=== PATIENT | female | born 1980 | race Caucasian/White ===

== ENCOUNTER 2024-02-23 17:42 | Emergency (ER) | payer OTHER ==
[2024-02-23] MEDS ORDERED: Sodium Chloride 0.9% 10 ML Syringe FLUSH PRN (17:54)
[2024-02-23] MEDS ORDERED: Sodium Chloride 0.9% 2.5 ML Syringe FLUSH PRN (17:54)
[2024-02-23] MEDS: Lidocaine 2% Viscous Solution 15 ML UD PO ONE (18:37)
[2024-02-23] MEDS: Aluminum Hydroxide/Magnesium Hydroxide/Simethicone Susp 30 ML Cup PO ONE (18:37)
[2024-02-23 18:51] LABS: APPEARANCE,URINE CLEAR; BILIRUBIN,URINE NEGATIVE (NEGATIVE); COLOR,URINE YELLOW; GLUCOSE,URINE NEGATIVE (NEGATIVE); KETONES,URINE 15 mg/dL (NEGATIVE); LEUKOCYTE ESTERASE,URINE NEGATIVE (NEGATIVE); NITRITE,URINE NEGATIVE (NEGATIVE); OCCULT BLOOD,URINE NEGATIVE (NEGATIVE); PH,URINE 6.5 (5.0-8.0); PROTEIN,URINE NEGATIVE (NEGATIVE); UROBILINOGEN,URINE 0.2 EU/dL (<2.0)
[2024-02-23 19:05] LABS: BASOPHILS ABSOLUTE AUTO 0.04 K/uL (0.00-0.20); BASOPHILS PERCENT AUTO 0.3 % (0.0-1.0); EOSINOPHILS ABSOLUTE AUTO 0.02 K/uL (0.00-0.45); EOSINOPHILS PERCENT AUTO 0.1 % (0.0-6.0); HEMATOCRIT 37.7 % (37.0-47.0); HEMOGLOBIN 12.6 g/dL (12.0-16.0); IMMATURE GRAN ABSOLUTE AUTO 0.04 K/uL (0.00-0.05); IMMATURE GRAN PERCENT AUTO 0.3 % (0.0-0.4); LYMPHOCYTES ABSOLUTE AUTO 1.93 K/uL (1.00-4.80); LYMPHOCYTES PERCENT AUTO 13.2 % (24.0-44.0); MEAN CORPUSCULAR HGB CONC 33.4 g/dL (32.0-36.0); MEAN CORPUSCULAR VOLUME 86.9 fL (83.0-99.0); MEAN PLATELET VOLUME 10.1 fL (9.4-12.3); MONOCYTES PERCENT AUTO 4.1 % (0.0-8.0); NEUTROPHILS ABSOLUTE AUTO 11.98 K/uL (1.80-7.70); PLATELET COUNT,PLT 362 K/uL (150-400); RED BLOOD CELL COUNT 4.34 M/uL (4.10-5.30); WHITE BLOOD CELL COUNT,WBC 14.61 K/uL (3.9-11.3)
[2024-02-23] MEDS: Pantoprazole 40 MG in Sodium Chloride 0.9% 10 ML IVPUSH ONE (19:24)
[2024-02-23 19:28] LABS: A/G RATIO 0.9 (0.9-1.6); ALBUMIN 3.6 g/dL (3.4-5.0); BILIRUBIN TOTAL 0.2 mg/dL (0.2-1.0); CALCIUM 9.9 mg/dL (8.5-10.1); CARBON DIOXIDE,CO2 28.1 mmol/L (21.0-32.0); EST CRCL DRUG DOSING (CG) 69.31 mL/min; POTASSIUM,K 4.1 mmol/L (3.5-5.1); PROTEIN TOTAL,TP 7.8 g/dL (6.4-8.2)
[2024-02-23] MEDS: Morphine 2 MG/ML SYRINGE IVPUSH ONE (20:52)
[2024-02-23] MEDS: Ondansetron 4 MG/2 ML SDV IVPUSH ONE (20:52)
[2024-02-23] MEDS ORDERED: Iopamidol 755 Mg/ML 100 ML Bottle IVPUSH ONE (21:09)
== END 2024-02-23 22:30 | disposition home or self-care (01) ==
LOC: MW.ED 17:42
DX: K29.00 Acute gastritis without bleeding (principal); K21.9 Gastro-esophageal reflux disease without esophagitis; K80.20 Calculus of gallbladder without cholecystitis without obstruction; Z75.8 Other problems related to medical facilities and other health care; Z79.899 Other long term (current) drug therapy
CPT/HCPCS: 36415; 74177; 80053; 81003; 81025; 83690; 85025; 96374; 96375; 99284; A9270; J2270; J2405; J2470; J3490

== ENCOUNTER 2024-02-27 20:07 | Day surgery (SDC) | payer OTHER ==
[2024-02-28] MEDS ORDERED: Sodium Chloride 0.9% 10 ML Syringe FLUSH PRN ×2 (01:38→07:13)
[2024-02-28] MEDS: Pantoprazole 40 MG in Sodium Chloride 0.9% 10 ML IVPUSH ONE (02:14)
[2024-02-28] MEDS: Morphine 4 MG/ML Syringe IVPUSH ONE (02:15)
[2024-02-28 02:25] LABS: BASOPHILS ABSOLUTE AUTO 0.06 K/uL (0.00-0.20); BASOPHILS PERCENT AUTO 0.5 % (0.0-1.0); EOSINOPHILS ABSOLUTE AUTO 0.06 K/uL (0.00-0.45); EOSINOPHILS PERCENT AUTO 0.5 % (0.0-6.0); HEMATOCRIT 36.4 % (37.0-47.0); HEMOGLOBIN 12.4 g/dL (12.0-16.0); IMMATURE GRAN ABSOLUTE AUTO 0.02 K/uL (0.00-0.05); IMMATURE GRAN PERCENT AUTO 0.2 % (0.0-0.4); LYMPHOCYTES ABSOLUTE AUTO 3.62 K/uL (1.00-4.80); LYMPHOCYTES PERCENT AUTO 31.2 % (24.0-44.0); MEAN CORPUSCULAR HEMOGLOBIN 29.5 pg (28.0-32.0); MEAN CORPUSCULAR HGB CONC 34.1 g/dL (32.0-36.0); MEAN CORPUSCULAR VOLUME 86.7 fL (83.0-99.0); MEAN PLATELET VOLUME 10.3 fL (9.4-12.3); MONOCYTES ABSOLUTE AUTO 0.76 K/uL (0.00-0.80); MONOCYTES PERCENT AUTO 6.5 % (0.0-8.0); NEUTROPHILS PERCENT AUTO 61.1 % (41.0-71.0); PLATELET COUNT,PLT 382 K/uL (150-400); WHITE BLOOD CELL COUNT,WBC 11.62 K/uL (3.9-11.3)
[2024-02-28 02:37] LABS: APPEARANCE,URINE CLEAR; BILIRUBIN,URINE NEGATIVE (NEGATIVE); COLOR,URINE YELLOW; GLUCOSE,URINE NEGATIVE (NEGATIVE); KETONES,URINE TRACE mg/dL (NEGATIVE); LEUKOCYTE ESTERASE,URINE NEGATIVE (NEGATIVE); NITRITE,URINE NEGATIVE (NEGATIVE); OCCULT BLOOD,URINE NEGATIVE (NEGATIVE); PROTEIN,URINE NEGATIVE (NEGATIVE); UROBILINOGEN,URINE 0.2 EU/dL (<2.0)
[2024-02-28 02:59] LABS: ALBUMIN 3.9 g/dL (3.4-5.0); BILIRUBIN TOTAL 0.5 mg/dL (0.2-1.0); C-REACTIVE PROTEIN 1.62 mg/dL (<0.3); CALCIUM 9.3 mg/dL (8.5-10.1); CARBON DIOXIDE,CO2 25.4 mmol/L (21.0-32.0); CREATININE 0.9 mg/dL (0.6-1.0); EST CRCL DRUG DOSING (CG) 77.01 mL/min; POTASSIUM,K 3.3 mmol/L (3.5-5.1); PROTEIN TOTAL,TP 7.7 g/dL (6.4-8.2)
[2024-02-28] MEDS: Iopamidol 755 Mg/ML 100 ML Bottle IVPUSH ONE (04:51)
[2024-02-28] MEDS: Sodium Chloride 0.9% 1,000 ML IV ONE (05:21)
[2024-02-28] MEDS ORDERED: Ondansetron 4 MG/2 ML SDV IVPUSH PRN ×2 (06:15→15:43)
[2024-02-28] MEDS ORDERED: dexmedeTOMIDine HCl 200 MCG/2 ML SDV IV ONE (06:16)
[2024-02-28] MEDS: Piperacillin/Tazobactam 3.375 GM in Sodium Chloride 0.9% 100 ML IV ONE (06:46)
[2024-02-28] MEDS: Sodium Chloride 0.9% 1,000 ML IV SCH (06:46)
[2024-02-28] MEDS ORDERED: Sodium Chloride 0.9% 20 ML SDV IV PRN (07:13)
[2024-02-28] MEDS ORDERED: Sodium Chloride 0.9% 2.5 ML Syringe FLUSH PRN (07:13)
[2024-02-28] MEDS ORDERED: Sodium Chloride 0.9% 1,000 ML IV SCH (07:15)
[2024-02-28] MEDS: HYDROmorphone 0.5 MG/0.5 ML Syringe IVPUSH PRN (11:27)
[2024-02-28] MEDS ORDERED: fentaNYL 100 MCG/2 ML SDV ONE ×3 (11:46→14:21)
[2024-02-28] MEDS ORDERED: Propofol 200 MG/20 ML SDV ONE (11:46)
[2024-02-28] MEDS ORDERED: Lidocaine 2% 5 ML SDV ONE (11:46)
[2024-02-28] MEDS ORDERED: Midazolam 1 MG/ML 2 ML SDV ONE (11:46)
[2024-02-28] MEDS ORDERED: Ropivacaine 0.5% 5 MG/ML 30 ML SDV ONE (11:51)
[2024-02-28] MEDS ORDERED: Bupivacaine 0.25% 30 ML SDV ONE (11:51)
[2024-02-28] MEDS ORDERED: Morphine 10 MG/ML SDV ONE (13:16)
[2024-02-28] MEDS ORDERED: Bupivacaine 0.5% 30 ML SDV ONE (13:37)
[2024-02-28] MEDS ORDERED: Lidocaine 2% 11 ML Jelly Filled Syringe ONE (13:50)
[2024-02-28] MEDS ORDERED: Famotidine 20 MG/2 ML SDV ONE (14:06)
[2024-02-28] MEDS ORDERED: Ketamine HCL/NACL, ISO-OSM 50 MG/5 ML Syringe ONE (14:07)
[2024-02-28] MEDS ORDERED: Ketorolac 30 MG/ML SDV ONE (14:23)
[2024-02-28] MEDS ORDERED: Dexamethasone 4 MG/ML 5 ML MDV ONE (14:23)
[2024-02-28] MEDS ORDERED: Ondansetron 4 MG/2 ML SDV ONE (14:23)
[2024-02-28] MEDS ORDERED: Rocuronium Bromide 50 MG/5 ML Syringe ONE (14:25)
[2024-02-28] MEDS ORDERED: Sugammadex Sodium 200 MG/2 ML VIAL IV ONE (14:51)
[2024-02-28] MEDS ORDERED: Glycopyrrolate 0.2 MG/ML SDV ONE (14:51)
[2024-02-28] MEDS ORDERED: Naloxone 0.4 MG/ML SDV IVPUSH PRN (15:43)
[2024-02-28] MEDS ORDERED: Phenylephrine HCl In 0.9% NaCl 1 MG/10 ML Syringe IVPUSH PRN (15:43)
[2024-02-28] MEDS ORDERED: Albuterol 0.083% 2.5 MG/3 ML Neb Soln NEB PRN (15:43)
[2024-02-28] MEDS ORDERED: Morphine 2 MG/ML SYRINGE IVPUSH PRN (15:43)
[2024-02-28] MEDS ORDERED: fentaNYL 50 MCG/ML SDV IVPUSH PRN (15:43)
[2024-02-28] MEDS ORDERED: HYDROmorphone 1 MG/ML Syringe IVPUSH PRN (15:43)
[2024-02-28] MEDS ORDERED: Metoclopramide 10 MG/2 ML SDV IVPUSH PRN (15:43)
[2024-02-28] MEDS: Acetaminophen/oxyCODONE 325-5 MG Tab PO PRN (20:51)
== END 2024-02-28 21:15 | disposition home or self-care (01) ==
LOC: MW.ED 20:07 → MW.SDS 02-28 06:15 → MW.MS 02-28 06:15 → MW.SDS 02-28 21:15
PROVIDERS: ATTEND Surgery
DX: K80.12 Calculus of gallbladder with acute and chronic cholecystitis without obstruction (principal); F90.9 Attention-deficit hyperactivity disorder, unspecified type; Z79.899 Other long term (current) drug therapy
CPT/HCPCS: 36415; 47562; 74177; 80053; 81003; 83605; 83690; 84703; 85025; 85652; 86140; 96361; 96374; 96375; 99285; A9270; J0131; J0665; J1100; J1171; J1596; J1885; J2250; J2272; J2470; J2543; J2704; J2795; J3010; J3490; J7030; Q9967; 00790; 64488; 99283; J2405

== ENCOUNTER 2024-04-04 13:28 | Emergency (ER) | payer OTHER ==
[2024-04-04] MEDS ORDERED: Sodium Chloride 0.9% 2.5 ML Syringe FLUSH PRN (13:51)
[2024-04-04] MEDS: Sodium Chloride 0.9% 10 ML Syringe FLUSH PRN (14:12)
[2024-04-04] MEDS: Morphine 4 MG/ML Syringe IVPUSH STA ×2 (14:12→16:07)
[2024-04-04] MEDS: Ondansetron 4 MG/2 ML SDV IVPUSH STA (14:12)
[2024-04-04 14:15] LABS: BASOPHILS ABSOLUTE AUTO 0.04 K/uL (0.00-0.20); BASOPHILS PERCENT AUTO 0.3 % (0.0-1.0); EOSINOPHILS ABSOLUTE AUTO 0.01 K/uL (0.00-0.45); EOSINOPHILS PERCENT AUTO 0.1 % (0.0-6.0); HEMOGLOBIN 12.2 g/dL (12.0-16.0); IMMATURE GRAN ABSOLUTE AUTO 0.02 K/uL (0.00-0.05); IMMATURE GRAN PERCENT AUTO 0.2 % (0.0-0.4); LYMPHOCYTES ABSOLUTE AUTO 0.96 K/uL (1.00-4.80); LYMPHOCYTES PERCENT AUTO 7.2 % (24.0-44.0); MEAN CORPUSCULAR HEMOGLOBIN 28.6 pg (28.0-32.0); MEAN CORPUSCULAR VOLUME 86.9 fL (83.0-99.0); MONOCYTES ABSOLUTE AUTO 0.35 K/uL (0.00-0.80); MONOCYTES PERCENT AUTO 2.6 % (0.0-8.0); NEUTROPHILS ABSOLUTE AUTO 11.92 K/uL (1.80-7.70); NEUTROPHILS PERCENT AUTO 89.6 % (41.0-71.0); PLATELET COUNT,PLT 383 K/uL (150-400); RED BLOOD CELL COUNT 4.26 M/uL (4.10-5.30)
[2024-04-04 14:19] LABS: APPEARANCE,URINE CLEAR; BILIRUBIN,URINE NEGATIVE (NEGATIVE); COLOR,URINE YELLOW; GLUCOSE,URINE NEGATIVE (NEGATIVE); KETONES,URINE >=80 mg/dL (NEGATIVE); LEUKOCYTE ESTERASE,URINE NEGATIVE (NEGATIVE); NITRITE,URINE NEGATIVE (NEGATIVE); OCCULT BLOOD,URINE SMALL (NEGATIVE); PH,URINE 5.5 (5.0-8.0); PROTEIN,URINE NEGATIVE (NEGATIVE); UROBILINOGEN,URINE 0.2 EU/dL (<2.0)
[2024-04-04 14:27] LABS: BACTERIA,URINE NOT SEEN (NEGATIVE); CALCIUM OXALATE CRYSTALS,URINE FEW (NEGATIVE); EPITHELIAL CELLS,URINE OCCASIONAL (NONE-FEW); RBC,URINE 0-2 (0-2/HPF); WBC,URINE NONE SEEN (0-5/HPF)
[2024-04-04] MEDS: Sodium Chloride 0.9% 1,000 ML IV STA (14:29)
[2024-04-04 14:50] LABS: BILIRUBIN TOTAL 0.5 mg/dL (0.2-1.0); C-REACTIVE PROTEIN 1.19 mg/dL (<0.3); CALCIUM 9.5 mg/dL (8.5-10.1); CARBON DIOXIDE,CO2 24.1 mmol/L (21.0-32.0); CREATININE 1.3 mg/dL (0.6-1.0); EST CRCL DRUG DOSING (CG) 51.24 mL/min; POTASSIUM,K 4.1 mmol/L (3.5-5.1); PROTEIN TOTAL,TP 7.9 g/dL (6.4-8.2)
[2024-04-04] MEDS: Iopamidol 755 MG/ML 500 ML Multipack Bottle IVPUSH STA (15:25)
[2024-04-04] MEDS: Promethazine 25 MG/ML SDV IM STA (16:39)
[2024-04-04] MEDS: Ketorolac 30 MG/ML SDV IVPUSH STA (17:14)
== END 2024-04-04 17:34 | disposition home or self-care (01) ==
LOC: MW.ED 13:28
DX: N13.2 Hydronephrosis with renal and ureteral calculous obstruction (principal); Z90.49 Acquired absence of other specified parts of digestive tract; Z86.16 Personal history of COVID-19; Z79.899 Other long term (current) drug therapy; Z75.8 Other problems related to medical facilities and other health care
CPT/HCPCS: 36415; 74177; 76830; 80053; 81001; 81025; 83605; 83690; 85025; 85652; 86140; 96361; 96372; 96374; 96375; 96376; 99284; J1885; J2270; J2405; J2550; J7030; Q9967